=== PATIENT | female | born 1995 | race Caucasian/White ===

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

== ENCOUNTER 2017-08-27 11:22 | Emergency (ER) | payer OTHER ==
[~2017-08-27] VITALS: Ht 160 cm; Wt 74.8 kg
[2017-08-27] MEDS ORDERED: BETAMETHASONE D15 G1 TOP (12:00)
[2017-08-27] MEDS ORDERED: PREDNISONE10 MG PO (12:00)
[2017-08-27] MEDS ORDERED: SINGULAIR10 MG PO (12:00)
[2017-08-27] MEDS ORDERED: ADVAIR 250-501 EACH INH (12:00)
[2017-08-27] MEDS ORDERED: ALBUTEROL2.5 MG/3 M INH (12:38)
== END 2017-08-27 13:30 | disposition home or self-care (01) ==
LOC: ED 11:22
DX: J45.909 Unspecified asthma, uncomplicated (principal); L20.9 Atopic dermatitis, unspecified
CPT/HCPCS: 71045; 94640; 99283; J7512

== ENCOUNTER 2017-10-01 17:01 | Emergency (ER) | payer OTHER ==
[~2017-10-01] VITALS: Ht 157.5 cm; Wt 74.8 kg
[~2017-10-01 17:01] MED LIST changes: +ADVAIR 250-501 EACH INH; +BETAMETHASONE D15 G1 TOP; +PREDNISONE10 MG PO
[2017-10-01] MEDS ORDERED: PREDNISONE20 MG PO (18:53)
== END 2017-10-01 19:20 | disposition home or self-care (01) ==
LOC: ED 17:01
DX: J45.901 Unspecified asthma with (acute) exacerbation (principal); Z79.899 Other long term (current) drug therapy
CPT/HCPCS: 94640; 99283; J7512

== ENCOUNTER 2020-01-02 01:48 | Emergency (ER) | payer OTHER ==
[~2020-01-02] VITALS: Ht 157.5 cm; Wt 74.8 kg
--- OUTSIDE RECORDS SUMMARY | ~2020-01-02 | XMS | Encounter Summary ---
Demographics + + + | Address | [address] | | | [place] [address] | + + + | Home Phone | | + + + | Preferred Language | Unknown | + + + | Marital Status | | + + + | Cheondoism Affiliation | 1013 | + + + | Race | White | + + + | Ethnic Group | Not or | + + + Author + + + | Author | [facility] | | | and [place] | + + + | Organization | [facility] | | | and [place] | + + + | Address | Unknown | + + + | Phone | Unavailable | + + + Support + + + + + | Name | Relationship | Address | Phone | + + + + + | Alex Cain | ECON | [address] | | | | | [place] | | | | | [address] | | + + + + + Care Team Providers + +------+ + | Care Wellness Specialist Name | Role | Phone | + +------+ + | No, Physician | PCP | Unavailable | + +------+ + Encounter Details +--------+---------+ + + + | Date | Type | Department | Care Team | Description | +--------+---------+ + + + | 06/11/ | Office | [facility] | Wm Meza, | Encounter for | | 2020 | Visit | FERTILITY CENTER | [address] | fertility testing | | | | [address] | [address], | (Primary Dx) | | | | [address], [place] | [place] [address] | | | | | [address] | [phone] | | | | | [phone] | | | +--------+---------+ + + + Social History + +-------+ +--------+------+ | Tobacco Use | Types | Packs/Day | Years | Date | | | | | Used | | + +-------+ +--------+------+ | Never Smoker | | | | | + +-------+ +--------+------+ + +---+---+---+ | Smokeless Tobacco: | | | | | Never Used | | | | + +---+---+---+ + + +---------+ + | Alcohol Use | Drinks/Week | oz/Week | Comments | + + +---------+ + | No | | | | + + +---------+ + + + + | Sex Assigned at | Date Recorded | | | | + + + | Not on file | | + + + documented as of this encounter Progress Notes Wm Meza MD - 06/11/2019 11:00 AM PSTFormatting of this note might be different fr om the original. Subjective: Patient ID: Mitzy Cain is a 24 y.o. female. Patient's last menstrual period was 06/02/2019 (exact date). [id number] Mitzy is a No obstetric history on file. female who presents to office for a cycle day 10 f ollicle count ultrasound. She is a surrogate under the care and management of [facility] with Mal Martinez. Patient is currently using estrogen injections Patient denies questions or concerns today. No results found for this or any previous visit (from the past 672 hour(s)). Current Outpatient Medications: albuterol 90 mcg/puff inhaler, Inhale 2 puffs into the lungs every 6 hours as needed f or Wheezing., Disp: , Rfl: fluticasone-salmeterol (ADVAIR) 100-50 mcg/puff diskus inhaler, Inhale 1 puff into the lungs Twice Daily., Disp: , Rfl: hydrOXYzine hydrochloride (ATARAX) 25 mg tablet, , Disp: , Rfl: montelukast (SINGULAIR) 10 mg tablet, , Disp: , Rfl: OB History No obstetric history on file. Follicle Count US performed? yes Cycle day #3 Date: 06/04/2019 Follicle measurement: Anteverted uterus with a heterogenous endometrial thickness; initially measurin.51 mm a t the fundus, and 4.72 mm at mid-body. Peristalsis/movement consistent with menstrual flow noted. Endometrium is thick and bulbous at the fundus. Peristalsis at fundus within the bul bous area, most consistent with clot. During exam, apparent decrease of width in cavity near the fundus, measured again at end of exam, the endometrium was again heterogenous and measu ring 6.59 mm. During the entire examination no stalk of vascular flow was noted entering th e endometrium, no suggestion of a polyp, but cannot absolutely rule out. Ovaries appear quiescent. Anteverteduterus,endometrial thickness; measurin.70mm at the fundusand 4.77 mm midbody. A slightly hypoechoic, oblong area with no internal color flow and no apparent sto ck identified;does not appear to be a polyp or fibroid,probable blood and debris. Measur es:1.19 cm x 0.69 cm x 3.01cm Ovaries appear suppressed The cul-de-sac is free and containsno fluid. No past medical history on file. No past surgical history on file. Review of Systems Constitutional: Negative. Negative for activity change, appetite change, fever and unexpec halle weight change. HENT: Negative. Eyes: Negative. Respiratory: Negative. Cardiovascular: Negative. Gastrointestinal: Negative. Negative for abdominal distention, constipation and diarrhea. Endocrine: Negative. Negative for cold intolerance, heat intolerance, polydipsia and polyp hagia. Genitourinary: Negative for dyspareunia, pelvic pain, vaginal bleeding, vaginal discharge a nd vaginal pain. Musculoskeletal: Negative. Skin: Negative. Allergic/Immunologic: Negative for immunocompromised state. Neurological: Negative. Hematological: Negative. Psychiatric/Behavioral: Negative. Negative for agitation and dysphoric mood. The patient i s not hyperactive. Objective: Physical Exam Vitals signs reviewed. Constitutional: General: She is not in acute distress. Appearance: She is well-developed. She is not diaphoretic. HENT: Head: Normocephalic and atraumatic. Right Ear: External ear normal. Left Ear: External ear normal. Pulmonary: Effort: Pulmonary effort is normal. No respiratory distress. Abdominal: General: There is no distension. Genitourinary: Comments: Deferred, not indicated Skin: General: Skin is warm and dry. Neurological: Mental Status: She is alert and oriented to person, place, and time. Psychiatric: Behavior: Behavior normal. Thought Content: Thought content normal. Judgment: Judgment normal. Ultrasound Procedure Note Referring Physician: Gordy Dolan MD Performing Physician: Wm Meza MD Indications: Follicle assessment Date: 06/11/19 at 1132 hours Procedure Details The entire study was done at a setting of 6.5 MHz. Transvaginal probe used. The cul-de-sac is free and contains a small amount of clear fluid. Uterus Size: 9.45 cm x 4.55 cm x 5.73 cm. Volume: 129.002 cm Anteverted uterus with a heterogenous endometrial thickness; measurin.98 mm. Right ovary Size: Normal Follicles - Minimal antral follicles present, nothing > 5 mm. Left ovary Size: Normal Follicles - Minimal antral follicles present, nothing > 5 mm. Findings: Anteverted uterus with a heterogenous endometrial thickness; measurin.98 mm. Both ovaries seen, no cysts or masses appreciated. Appearance consistent with suppression. Assessment and Plan: Encounter for fertility testing: Follicle assessment completed. Findings noted above. PLAN: 1. Full report faxed to [facility], attention Sara Bradshaw RN at [phone] Note scribed by TOMI Lopez for Wm Meza MD. I, Wm Meza MD, personally performed the services described in this documentatio n, as scribed by Debbie Bergman CMA in my presence, and it is both accurate and complete. documented in this e ncounter Plan of Treatment Not on filedocumented as of this encounter Visit Diagnoses + + | Diagnosis | + + | Encounter for fertility testing - Primary Fertility testing | + + documented in this encounter"
--- OUTSIDE RECORDS SUMMARY | ~2020-01-02 | XMS | Encounter Summary ---
Demographics + + + | Address | [address] | | | [place] [address] | + + + | Home Phone | | + + + | Preferred Language | Unknown | + + + | Marital Status | | + + + | Latter Day Affiliation | 1013 | + + + | Race | White | + + + | Ethnic Group | Not or | + + + Author + + + | Author | [facility] | | | and [place] | + + + | Organization | [facility] | | | and [place] | + + + | Address | Unknown | + + + | Phone | Unavailable | + + + Support + + + + + | Name | Relationship | Address | Phone | + + + + + | Alex Cain | ECON | [address] | | | | | [place], [place] | | | | | [address] | | + + + + + Care Team Providers + +------+ + | Care Sandwich Maker Name | Role | Phone | + +------+ + | No, Physician | PCP | Unavailable | + +------+ + Reason for Visit + +--------+ + | Reason | Onset | Comments | | | Date | | + +--------+ + | Follow-up | 07/05/ | | | | 2018 | | + +--------+ + Encounter Details +--------+ + + + + | Date | Type | Department | Care Team | Description | +--------+ + + + + | 07/05/ | Telephone | [facility] | No, Physician p | Follow-up | | 2017 | | [facility] | | | | | | CENTER [address] | | | | | | [place] | | | | | | [address] | | | | | | [phone] | | | +--------+ + + + + Social History + +-------+ [...] + + documented as of this encounter Miscellaneous Notes Telephone Encounter - Cam Blount CNA - 07/05/2017 11:36 AM PSTReason For Call: FOLLOW-UP documented in this enco unter Plan of Treatment Not on filedocumented as of this encounter Visit Diagnoses Not on filedocumented in this encounter"
--- OUTSIDE RECORDS SUMMARY | ~2020-01-02 | XMS | Encounter Summary ---
Demographics + + + | Address | [address] | | | [place] [address] | + + + | Home Phone | | + + + | Preferred Language | Unknown | + + + | Marital Status | | + + + | Jehovah'S Witness Affiliation | 1013 | + + + | Race | White | + + + | Ethnic Group | Not or | + + + Author + + + | Author | [facility] | | | and [place] | + + + | Organization | [facility] | | | and [place] | [...] [place], [place] | | | | | [address] | | + + + + + Care Team Providers + +------+ + | Care Car Hopper Name | Role | Phone | + +------+ + | No, Physician | PCP | Unavailable | + +------+ + Reason for Visit +--------+ + | Reason | Comments | +--------+ + | Cough | | +--------+ + Encounter Details +--------+ + + + + | Date | Type | Department | Care Team | Description | +--------+ + + + + | 04/14/ | Emergency | [facility] | Jair Duff | Viral upper | | 2017 | | HOSPITAL [facility] | [address] | respiratory tract | | | | CENTER [address] | [address] | infection (Primary | | | | [address] [place], [place] | [place] [address] | Dx) | | | | [address] | [phone] | | | | | [phone] | | | +--------+ + + + [...] + + documented as of this encounter Last Filed Vital Signs + + + + + | Vital Sign | Reading | Time Taken | Comments | + + + + + | Blood Pressure | 133/74 | 04/14/2017 3:20 PM | | | | | PST | | + + + + + | Pulse | 90 | 04/14/2017 3:20 PM | | | | | PST | | + + + + + | Temperature | 36.8 C (98.2 F) | 04/14/2017 3:20 PM | | | | | PST | | + + + + + | Respiratory Rate | 16 | 04/14/2017 3:20 PM | | | | | PST | | + + + + + | Oxygen Saturation | 100% | 04/14/2017 3:20 PM | | | | | PST | | + + + + + | Inhaled Oxygen | - | - | | | Concentration | | | | + + + + + | Weight | 70.3 kg (155 lb) | 04/14/2017 3:20 PM | | | | | PST | | + + + + + | Height | 157.5 cm (5' 2") | 04/14/2017 3:20 PM | | | | | PST | | + + + + + | Body Mass Index | 28.35 | 04/14/2017 3:20 PM | | | | | PST | | + + + + + documented in this encounter Discharge Instructions Jair Kerr DO - 04/14/2017Follow-up with your primary doctor as needed. AttachmentsThe following attachments cannot be sent through Care Everywhere.URI, Viral, No Abx (Adult) ([place])documented in this encounter Medications at Time of Discharge + + + +---------+--------+ + | Medication | Sig | Dispensed | Refills | Start | End Date | | | | | | Date | | + + + +---------+--------+ + | albuterol 90 | Inhale 2 puffs into | | 0 | | | | mcg/puff inhaler | the lungs every 6 | | | | | | | hours as needed for | | | | | | | Wheezing. | | | | | + + + +---------+--------+ + | | Inhale 1 puff into | | 0 | | | | fluticasone-salmeter | the lungs Twice | | | | | | ol (ADVAIR) 100-50 | Daily. | | | | | | mcg/puff diskus | | | | | | | inhaler | | | | | | + + + +---------+--------+ + | montelukast | Take 10 mg by mouth | | 0 | | | | (SINGULAIR) 10 mg | nightly. | | | | 8 | | tablet | | | | | | + + + +---------+--------+ + documented as of this encounter ED Notes Jair Duff, DO - 04/14/2017 3:29 PM PSTFormatting of this note might be diff erent from the original. [facility] Emergency Department Provider Note Name: Melecio Cain Date: 04/14/2017 : 1995 Room Number: ED01 PCP: No Physician on file ED COURSE Patient was seen and evaluated in room 1. She appeared to be suffering from upper respirat ory tract infection. I felt it was likely viral. Patient was discharged in stable conditio n. Clinical Impression and Plan Final diagnoses: Viral upper respiratory tract infection ED Prescriptions None Extended ED Note CC: Chief Complaint Patient presents with Cough Method of Arrival: walk-in History obtained from: Patient HPI: Melecio Cain is a 21 y.o. female who presents with chest pain associated with cough. Onset w as yesterday and pt states that her 23 month old son has been sick with similar symptoms for about a week; her 3 m.o. son began having similar symptoms last night as well. She reports a history of asthma for which she takes albuterol inhaler for, as needed. She denies new karon h, fever, or ear pain. Review of Systems Review of Systems Constitutional: Negative for fever. HENT: Negative for ear pain. Respiratory: Positive for cough (Chest pain associated with cough). Skin: Positive for rash (Rash has been present since her yonger son's , 3 months ago. ). Physical Exam Pulse: 90- Resp: 16- BP: 133/74 - SpO2: 100 % - Temp: 36.8 C (98.2 F) Physical Exam Constitutional: She is oriented to person, place, and time. She appears well-developed and well-nourished. No distress. HENT: Head: Normocephalic and atraumatic. Right Ear: Tympanic membrane, external ear and ear canal normal. Left Ear: Tympanic membrane, external ear and ear canal normal. Mouth/Throat: Mucous membranes are normal. Congestion. Moist mucus membrane Eyes: Pupils are equal, round, and reactive to light. Neck: Normal range of motion. Neck supple. Cardiovascular: Normal rate, regular rhythm and normal heart sounds. Pulmonary/Chest: Effort normal and breath sounds normal. Abdominal: Soft. Musculoskeletal: Normal range of motion. Neurological: She is alert and oriented to person, place, and time. Skin: Skin is warm and dry. Psychiatric: She has a normal mood and affect. Past Medical, Surgical, Social, and Family History History reviewed. No pertinent past medical history. History reviewed. No pertinent surgical history. Social History Substance Use Topics Smoking status: Never Smoker Smokeless tobacco: Never Used Alcohol use No Discharge Medication List as of 04/14/2017 15:51 CONTINUE these medications which have NOT CHANGED Details albuterol 90 mcg/puff inhaler Inhale 2 puffs into the lungs every 6 hours as needed for Whe ezing.Historical Med fluticasone-salmeterol (ADVAIR) 100-50 mcg/puff diskus inhaler Inhale 1 puff into the lungs Twice Daily.Historical Med montelukast (SINGULAIR) 10 mg tablet Take 10 mg by mouth nightly.Historical Med This document serves as a record of the serviced and decision personally performed by Sheryl Duff,*. It was created on their behalf by Talat Marroquin, a trained medical interpreter. The creation of this document is based on the provider's statements to the medical s cribe. Jair Duff DO 04/16/17 0933 Carmel Lombardi RN - 04/14/2017 3:17 PM PSTStarted coughing, chest pain with cough, history of ast hma. Symptoms started yesterday. documented in this encounter Plan of Treatment + +------+--------+ + + | Name | Type | Priori | Associated Diagnoses | Date/Time | | | | ty | | | + +------+--------+ + + | ED INFORMATION | HERB | Routin | | 04/14/2017 3:51 PM | | EXCHANGE | | e | | PST | + +------+--------+ + + documented as of this encounter Procedures + +--------+ + + + | Procedure Name | Priori | Date/Time | Associated Diagnosis | Comments | | | ty | | | | + +--------+ + + + | ED INFORMATION | Routin | 04/14/2017 | | | | EXCHANGE | e | 3:51 PM | | | | | | PST | | | + +--------+ + + + +---+--------+ | | | | | Proced | | | ure | | | Note - | | | Devika, | | | Lab In | | | | | | Hlseve | | | n - | | | | | | 2016 | | | 3:52 | | | PM PST | | | | | | Format | | | ting | | | of | | | this | | | note | | | might | | | be | | | differ | | | ent | | | from | | | the | | | origin | | | al.DEVIKA | | | E?NOTI | | | FICATI | | | ON? | | | | | | 7 | | | 14:44? | | | CAIN, | | | | | | MELECIO? | | | MRN: | | | [id number] | | | [id number] | | | D Care | | | | | | Guidel | | | zhang | | | from | | | Good | | | [facility] | | | rd | | | Health | | | Care | | | System | | | Last | | | Update | | | d: | | | | | | 7 | | | 11:37 | | | AM | | | Care | | | Coordi | | | nation | | | :This | | | patien | | | t has | | | been | | | identi | | | fied | | | as | | | having | | | at | | | least? | | | 5 | | | Emerge | | | ncy | | | Depart | | | ments | | | visits | | | in | | | the 12 | | | | | | months | | | | | | immedi | | | ately | | | preced | | | ing | | | the | | | date | | | these | | | guidel | | | zhang | | | were | | | entere | | | d.? | | | Patien | | | t | | | requir | | | es | | | educat | | | ion on | | | | | | approp | | | riate | | | ED | | | usage. | | | | | | Emphas | | | ize | | | the | | | import | | | ance | | | of | | | using | | | outpat | | | ient | | | medica | | | l | | | servic | | | es for | | | the | | | treatm | | | ent of | | | | | | chroni | | | c | | | condit | | | ions.P | | | lease | | | contac | | | t | | | Commun | | | ity | | | Health | | | | | | Worker | | | ,?Yosvany | | | | | | Branno | | | n?at | | | [phone] | | [phone] | | | 8 if | | | patien | | | t is | | | seen | | | in | | | ED.The | | | se are | | | | | | guidel | | | zhang | | | and | | | the | | | provid | | | er | | | should | | | | | | exerci | | | se | | | clinic | | | al | | | judgme | | | nt | | | when | | | provid | | | ing | | | care.C | | | riteri | | | a met | | | Has | | | Care | | | Guidel | | | zhang | | | 5 | | | Visits | | | In | | | 365 | | | DaysCa | | | re | | | Provid | | | ersPro | | | vider | | | PRC | | | Type | | | Phone | | | Fax | | | Servic | | | e | | | Dates | | | TURNER | | | AHMADI | | | , [place] | | | Primar | | | y Care | | | ([phone]) | | | | | | [phone] | | | [phone] | | | [phone]) | | | [phone] | | | 27 Apr | | | 27, | | | 2017 - | | | | | | Curren | | | t | | | Yosvany | | | Branno | | | n, CHW | | | Case | | | or | | | Care | | | Manage | | | r | | | ([phone]) | | | [phone] | | | 08 | | | ([phone]) | | | [phone] | | | 10 Jethro | | | 6, | | | 2017 - | | | | | | Curren | | | t | | | Recent | | | | | | Emerge | | | ncy | | | Depart | | | ment | | | Visit | | | [place] | | | yAdmit | | | Date | | | Facili | | | ty | | | City | | | State | | | Type | | | Major | | | Type | | | Diagno | | | ses or | | | Chief | | | | | | Compla | | | int | | | Dec | | | 18, | | | 2017 | | | [facility] | | | [facility] | | | [place] | [place] | [place] | | | Emerge | | | ncy | | | Emerge | | | ncy | | | COUGH | | | | | | Acute | | | upper | | | respir | | | atory | | | infect | | | ion, | | | unspec | | | ified | | | | | | Other | | | viral | | | agents | | | as | | | the | | | cause | | | of | | | diseas | | | es | | | classi | | | fied | | | elsewh | | | ere | | | Recent | | | | | | Inpati | | | ent | | | Visit | | | [facility] | | | yNo | | | record | | | ed | | | inpati | | | ent | | | visits | | | . E.D. | | | Visit | | | Count | | | (12 | | | mo.)Fa | | | cility | | | | | | Visits | | | Good | | | [facility] | | | rd | | | Health | | | Care | | | System | | | 2 | | | [facility] | | | [facility] | [facility] | | | al 1 | | [facility] | | | al 2 | | | Total | | | 5 | | | Note: | | | Visits | | | | | | indica | | | te | | | total | | | known | | | visits | | | . | | | PDMP | | | Report | | | Unable | | | to | | | query | | | PDMP.T | | | he | | | above | | | inform | | | ation | | | is | | | provid | | | ed for | | | the | | | sole | | | purpos | | | e of | | | patien | | | t | | | treatm | | | ent. | | | Use of | | | this | | | inform | | | ation | | | beyond | | | the | | | terms | | | of | | | Data | | | Sharin | | | g | | | Memora | | | ndum | | | of | | | Unders | | | tandin | | | g and | | | Licens | | | e | | | Agreem | | | ent is | | | | | | prohib | | | ited. | | | In | | | certai | | | n | | | cases | | | not | | | all | | | visits | | | may | | | be | | | repres | | | ented. | | | | | | Consul | | | t the | | | aforem | | | ention | | | ed | | | facili | | | ties | | | for | | | additi | | | onal | | | inform | | | ation. | | | ? | | | 2017 | | | [employer] | | | tive | | | [employer] | | | l | | | [employer] | | | logies | | | , [employer] | | | - | | | [place] | | | [place] | | | [place], | | | [place] - | | | [email or web address] | | | ollect | | | ivemed | | | icalte | | | ch.com | | | | +---+--------+ documented in this encounter Visit Diagnoses + + | Diagnosis | + + | Viral upper respiratory tract infection - Primary Acute upper respiratory infections | | of unspecified site | + + documented in this encounter
--- OUTSIDE RECORDS SUMMARY | ~2020-01-02 | XMS | Encounter Summary ---
Demographics + + + | Address | [address] | | | [place] [address] | + + + | Home Phone | | + + + | Preferred Language | Unknown | + + + | Marital Status | | + + + | Catholic Affiliation | 1013 | + + + | Race | White | + + + | Ethnic Group | Not or | + + + Author + + + | Author | [facility] | | | and [place] | + + + | Organization | [facility] | | | and [place] | [...] [place], [place] | | | | | [address] | | + + + + + Care Team Providers + +------+ + | Care Gear Repairer Name | Role | Phone | + +------+ + | No, Physician | PCP | Unavailable | + +------+ + Reason for Visit +--------+ + | Reason | Comments | +--------+ + | Other | Outside monitoring | +--------+ + Encounter Details +--------+---------+ + + + | Date | Type | Department | Care Team | Description | +--------+---------+ + + + | 06/01/ | Office | [facility] | Susana Jensen, | Encounter for | | 2020 | Visit | FERTILITY [facility]ENTER | MD [address] | fertility testing | | | | [address] | [address] [facility] (Primary Dx) | | | | [address] [place], [place] | [place] [address] | | | | | [address] | [phone] | | | | | [phone] | | | +--------+---------+ + + + [...] encounter Progress Notes Wm Meza MD - 06/01/2019 8:30 AM PSTFormatting of this note might be different fr om the original. Subjective: Patient ID: Mitzy Cain is a 24 y.o. female. LMP unkown [id number] Mitzy is a female who presents to office for a cycle day follicle count ultrasound. 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 Stimulation medications used this cycle: Patient completed a month of OCP, finishing Thursd ay 05/27/2019. She has not started her menses to date. Patient denies questions or concerns today. No results found for this or any previous visit (from the past 672 hour(s)). Current Outpatient Medications: albuterol 90 mcg/puff inhaler, Inhale 2 puffs into the lungs every 6 hours as needed f or Wheezing., Disp: , Rfl: fluticasone-salmeterol (ADVAIR) 100-50 mcg/puff diskus inhaler, Inhale 1 puff into the lungs Twice Daily., Disp: , Rfl: OB History No obstetric history on file. Follicle Count US performed? no No past medical history on file. No [...] Wm Meza MD Indications: Follicle assessment Date: 06/01/19 at 0835 hours Procedure Details The entire study was done at a setting of 6.5 MHz. Transvaginal probe used. The cul-de-sac is free and contains no fluid. Uterus Size: 5.44 cm x 5.65 cm x 4.50 cm. Volume: 72.353 cm Anteverted uterus, endometrial thickness; measurin.70 mm at the fundus and 4.77 mm mid body. A slightly hypoechoic, oblong area with no internal color flow and no apparent stock i dentified; does not appear to be a polyp or fibroid, probable blood and debris. Measures: 1. 19 cm x 0.69 cm x 3.01 cm Right ovary Size: 4.83 cm x 3.66 cm x 1.50 cm. Volume: 13.884 cm Follicles - 12, antral follicles present Left ovary Size: 3.00 cm x 3.22 cm x 1.44 cm. Volume: 7.283 cm Follicles - 9 antral follicles present Findings: Anteverted uterus, endometrial thickness; measurin.70 mm at the fundus and 4.77 mm mid body. A slightly hypoechoic, oblong area with no internal color flow and no apparent stock i dentified; does not appear to be a polyp or fibroid, probable blood and debris. Measures: 1. 19 cm x 0.69 cm x 3.01 cm Ovaries appear suppressed The cul-de-sac is free and contains no fluid. Assessment and Plan: Encounter for fertility testing: Follicle assessment completed. Findings noted above. PLAN: 1. Full report faxed to [facility], attention Sara Bradshaw RN at [phone] Note scribed by TOMI Lopez for Wm Meza MD. I, Wm Meza MD, personally performed the services described in this documentatio n, as scribed by Debbie Bergman CMA in my presence, and it is both accurate and complete. . documented in this encounter Plan of Treatment Not on filedocumented as of this encounter Procedures + +--------+ + + + | Procedure Name | Priori | Date/Time | Associated Diagnosis | Comments | | | ty | | | | + +--------+ + + + | IMAGING REPORT - | | 06/01/2019 | | Results for this | | EXTERNAL SCAN | | 12:00 AM | | procedure are in the | | | | PST | | results section. | + +--------+ + + + documented in this encounter Results IMAGING REPORT - EXTERNAL SCAN (06/01/2019 12:00 AM PST) + + + | Narrative | Performed At | + + + | Ordered by an | | | unspecified provider. | | + + + documented in this encounter Visit Diagnoses + + | Diagnosis | + + | Encounter for fertility testing - Primary Fertility testing | + + documented in this encounter"
--- OUTSIDE RECORDS SUMMARY | ~2020-01-02 | XMS | Encounter Summary ---
Demographics + + + | Address | [address] | | | [place] [address] | + + + | Home Phone | | + + + | Preferred Language | Unknown | + + + | Marital Status | | + + + | Worship Affiliation | 1013 | + + + | Race | White | + + + | Ethnic Group | Not or | + + + Author + + + | Author | [facility] | | | and [place] | + + + | Organization | [facility] | | | and [place] | [...] [place], [place] | | | | | [address] | | + + + + + Care Team Providers + +------+ + | Care Green Chain Off Bearer Name | Role | Phone | + +------+ + | No, Physician | PCP | Unavailable | + +------+ + Reason for Visit + +--------+ + | Reason | Onset | Comments | | | Date | | + +--------+ + | ER Follow-up | 08/20/ | | | | 2018 | | + +--------+ + Encounter Details +--------+ + + + + | Date | Type | Department | Care Team | Description | +--------+ + + + + | 08/20/ | Telephone | [facility] | No, Physician p | ER Follow-up | | 2017 | | [facility] | | | | | | CENTER [address] | | | | | | [place] | | | | | | [address] | | | | | | [phone] | | | +--------+ + + + [...] this encounter Miscellaneous Notes Telephone Encounter - Dalia Bustamante CNA - 08/20/2017 2:08 PM PDTReason For Call: REMEDIOS BUI-UP documented in this encounter Plan of Treatment Not on filedocumented as of this encounter Visit Diagnoses Not on filedocumented in this encounter"
--- OUTSIDE RECORDS SUMMARY | ~2020-01-02 | XMS | Encounter Summary ---
Demographics + + + | Address | [address] | | | [place] [address] | + + + | Home Phone | | + + + | Preferred Language | Unknown | + + + | Marital Status | | + + + | Yarsani Affiliation | 1013 | + + + | Race | White | + + + | Ethnic Group | Not or | + + + Author + + + | Author | [facility] | | | and [place] | + + + | Organization | [facility] | | | and [place] [...] [place] | | | | | [address] | | + + + + + Care Team Providers + +------+ + | Care Retail Sales Manager Name | Role | Phone | + +------+ + | No, Physician | PCP | Unavailable | + +------+ + Reason for Referral Evaluate & Treat (Routine) +--------+ + + + + + | Status | Reason | Specialty | Diagnoses / | Referred By | Referred To | | | | | Procedures | Contact | Contact | +--------+ + + + + + | Closed | Specialty | Dermatology | Diagnoses | Kwenda, | [facility] | | | Services | | Atopic | Esinath S, | Dermatology | | | Required | | dermatitis, | [facility] [address] | [address] | | | | | unspecified | [address] | [address] | | | | | | [place], | [place] | | | | | | [place] [address] | [place], [place] | | | | | | Phone: | [address] | | | | | | [phone] | Phone: | | | | | | Fax: | [phone] | | | | | | [phone] | Fax: | | | | | | | [phone] | +--------+ + + + + + Reason for Visit +--------+ + | Reason | Comments | +--------+ + | Rash | | +--------+ + Encounter Details +--------+ + + + + | Date | Type | Department | Care Team | Description | +--------+ + + + + | 08/17/ | Emergency | [facility] | RudolphAdriana carmona, | Atopic dermatitis, | | 2018 | | HOSP[facility] | [facility] [address] | unspecified type | | | | CENTER [address] | [address] [place], [place] | (Primary Dx) | | | | [place] | [address] | | | | | [address] | | | | | | [phone] | | | +--------+ + + + [...] + + + | Blood Pressure | 121/73 | 08/17/2017 3:14 PM | | | | | PDT | | + + + + + | Pulse | 81 | 08/17/2017 3:38 PM | | | | | PDT | | + + + + + | Temperature | 36.4 C (97.5 F) | 08/17/2017 3:45 PM | | | | | PDT | | + + + + + | Respiratory Rate | 16 | 08/17/2017 3:38 PM | | | | | PDT | | + + + + + | Oxygen Saturation | 100% | 08/17/2017 3:38 PM | | | | | PDT | | + + + + + | Inhaled Oxygen | - | - | | | Concentration | | | | + + + + + | Weight | 74.8 kg (165 lb) | 08/17/2017 2:47 PM | | | | | PDT | | + + + + + | Height | 157.5 cm (5' 2") | 08/17/2017 2:47 PM | | | | | PDT | | + + + + + | Body Mass Index | 30.18 | 08/17/2017 2:47 PM | | | | | PDT | | + + + + + documented in this encounter Discharge Instructions AttachmentsThe following attachments cannot be sent through Care Everywhere.Dermatitis, Wha t is Atopic ([place] Citizen)documented in this encounter Medications at Time of Discharge + + + +---------+ + + | Medication | Sig | Dispensed | Refills | Start | End Date | | | | | | Date | | + + + +---------+ + + | albuterol 90 | Inhale 2 puffs into | | 0 | | | | mcg/puff inhaler | the lungs every 6 | | | | | | | hours as needed for | | | | | | | Wheezing. | | | | | + + + +---------+ + + | | Inhale 1 puff into | | 0 | | | | fluticasone-salmeter | the lungs Twice | | | | | | ol (ADVAIR) 100-50 | Daily. | | | | | | mcg/puff diskus | | | | | | | inhaler | | | | | | + + + +---------+ + + | predniSONE | Take 1 tablet by | 7 | 0 | 08/18/19 | | | (DELTASONE) 20 mg | mouth Daily for 7 | tablet | | 18 | 8 | | tablet | days. | | | | | + + + +---------+ + + documented as of this encounter ED Notes Geno Clarke RN - 08/17/2017 3:05 PM ERNESTINA Steele to room to assess patient. Raymond toscano signed by Geno Clarke RN at 08/17/2017 3:05 PM Adriana Payne FNP - 07/28 2:50 PM PDT [facility] Emergency Department Provider Note Name: Melecio Cain Date: 08/17/2017 : 1995 Room Number: ED02 PCP: No Physician on file Medical Decision Making Patient was triaged to Room 2. Differential diagnosis include atopi c dermatitis. Patient refused topical steroids stating it does not work. A referral was made to the dermatology clinic and images of the rash were downloaded into [employer]. She was given a low dose oral steroid for the rash. Clinical Impression and Plan Final diagnoses: Atopic dermatitis, unspecified type ED Prescriptions Sig predniSONE (DELTASONE) 20 mg tablet Take 1 tablet by mouth Daily for 7 days. Extended ED Note CC: Chief Complaint Patient presents with Rash Method of Arrival: walk-in History obtained from: Patient HPI: Melecio Cain is a 22 y.o. female who presents with a rash on her left arm. Patient states th e rash started three days ago. Patient states the rash started when she was with he r son but it went away but came back again. The rash is intermittent. Patient states she has heart palpitations that come and go. Denies chest pain, shortness of breath or fever. She s tates she has tried all the over the counter creams but they do not seem to help. Patient ates she has been seen by different providers for the rash but the rash still comes back and she is worried that it might get worse. Additional records obtained and reviewed by me: Reviewed old records, labs, imaging. Histo ry significant for Diagnostics and Procedures The following tests were ordered and independently interpreted by me: EKG: Review of Systems Review of Systems Constitutional: Negative. HENT: Negative. Eyes: Negative. Respiratory: Positive for shortness of breath. Shortness of Breath due to Asthma. Cardiovascular: Positive for palpitations. Gastrointestinal: Negative. Endocrine: Negative. Genitourinary: Negative. Musculoskeletal: Negative. Skin: Positive for rash. Allergic/Immunologic: Negative. Neurological: Positive for headaches. Hematological: Negative. Psychiatric/Behavioral: Negative. Physical Exam @[email or web address]@ Physical Exam Constitutional: She is oriented to person, place, and time. She appears well-developed and well-nourished. HENT: Head: Normocephalic and atraumatic. Eyes: Pupils are equal, round, and reactive to light. Pulmonary/Chest: Effort normal and breath sounds normal. Musculoskeletal: Normal range of motion. Neurological: She is alert and oriented to person, place, and time. She has normal reflexes . Skin: Rash noted. There is erythema. Maculopapular rash noted. Psychiatric: She has a normal mood and affect. Her speech is normal and behavior is normal. Judgment and thought content normal. Cognition and memory are normal. Nursing note and vitals reviewed. Past Medical, Surgical, Social, and Family History No past medical history on file. No past surgical history on file. Social History Substance Use Topics Smoking status: Never Smoker Smokeless tobacco: Never Used Alcohol use No Discharge Medication List as of 08/17/2017 15:40 CONTINUE these medications which have NOT CHANGED Details albuterol 90 mcg/puff inhaler Inhale 2 puffs into the lungs every 6 hours as needed for Whe ezing.Historical Med fluticasone-salmeterol (ADVAIR) 100-50 mcg/puff diskus inhaler Inhale 1 puff into the lungs Twice Daily.Historical Med Adriana Ash, [facility] 08/17/17 1911 Adriana Ash, [facility] 08/18/17 1443 Adriana Ash, NATHAN 08/22/17 1026 Carmel Solano RN - 08/17/2017 2:46 PM PDTPt c/o's rash on left arm x 2 days. documented in this encounter Plan of Treatment + +------+--------+ + + | Name | Type | Priori | Associated Diagnoses | Date/Time | | | | ty | | | + +------+--------+ + + | ED INFORMATION | HERB | Routin | | 08/17/2017 2:45 PM | | EXCHANGE | | e | | PDT | + +------+--------+ + + + + +--------+ + + | Name | Type | Priori | Associated Diagnoses | Order Schedule | | | | ty | | | + + +--------+ + + | AMB Referral to | Outpatient | Routin | | Ordered: 08/17/2017 | | [facility] | Referral | e | | | + + +--------+ + + documented as of this encounter Procedures + +--------+ + + + | Procedure Name | Priori | Date/Time | Associated Diagnosis | Comments | | | ty | | | | + +--------+ + + + | ECG 12 LEAD | STAT | 08/17/2017 | | Results for this | | | | 3:08 PM | | procedure are in the | | | | PDT | | results section. | + +--------+ + + + | ED INFORMATION | Routin | 08/17/2017 | | | | EXCHANGE | e | 2:45 PM | | | | | | PDT | | | + +--------+ + + + +---+--------+ | | | | | Proced | | | ure | | | Note - | | | Devika, | | | Lab In | | | | | | Hlseve | | | n - | | | | | | 2017 | | | 2:46 | | | PM PDT | | | | | | Format [...] | | | FICATI | | | ON?[birth year] | | | | | | 8 | | | 14:44? | | | CAIN, | | | | | | MELECIO? | | | MRN: | | | [id number] | | | [id number] | | | ecurit | | | y | | | Events | | | No | | | recent | | | | | | Securi | | | ty | | | Events | | | | | | curren | | | tly on | | | | | | fileED | | | Care | | | Guidel | | | inesTh | | | ere | | | are | | | curren | | | tly no | | | ED | | | Care | | | Guidel | | | zhang | | | in | | | HERB | | | for | | | this | | | patien | | | t. | | | Please | | | check | | | your | | | facili | | | ty's | | | medica | | | l | | | record | | | s | | | system | | | .Crite | | | yomi | | | met 5 | | | | | | Visits [...] | | | int | | | Apr | | | 22, | | | 2018 | | | [place] | | | [place] | | | [place] | | | [place] | | | [place] | | | Emerge | | | ncy | | | Emerge | | | ncy | | | rash | | | Mar | | | 8, | | | 2018 | | | [place] | | | [place] | | | [place] | | | [place] | | | [place] | | | Emerge | | | ncy | | | Emerge | | | ncy | | | Astma | | | | | | Diffic | | | ulty | | | Breath | | | ing | | | Mild | | | interm | | | ittent | | | | | | asthma | | | , | | | uncomp | | | licate | | | d Richard | | | 14, | | | 2018 | | | [place] | | | [place] | | | [place] | | | [place] | | | [place] | | | Emerge | | | ncy | | | Emerge | | | ncy | | | Toe | | | Injury | | | | | | Pain | | | in | | | left | | | toe(s) | | | Dec | | | [...] | | Hospit | | | al 4 | [facility] | | | al 2 | | | Total | | | 8 | | | Note: | | | Visits | | | | | | indica | | | te | | | total | | | known | | | visits | | | . | | | PDMP | | | Report | | | PDMP | | | report | | | does | | | not | | | meet | | | criter | | | ia.The | | | above | | | | | | inform | | | [...] | | | ? | | | 2018 | | | [place] | | | [...] | | +---+--------+ documented in this encounter Results ECG 12 lead (08/17/2017 3:08 PM PDT) + + | Specimen | + + | | + + + + + | Narrative | Performed At | + + + | Heart Rate: 86 | [place] [facility] | | bpmQRS Interval: 82 msQT Interval: 380 msQTC Interval: 455 msP [place]: | [facility] | | 50 degQRS [place]: 48 degT Wave [place]: 27 degP-R Interval: 156 msec- | | | NORMAL ECG -SINUS RHYTHM | | |P [place]: 50 deg | | |QRS [place]: 48 deg | | |T Wave [place]: 27 deg | | |P-R Interval: 156 msec | | |- NORMAL ECG - | | |SINUS RHYTHM | | + + + + +---------+ + + | Performing | Address | City/State/Zipcode | Phone Number | | Organization | | | | + +---------+ + + | [facility] | | | | + +---------+ + + documented in this encounter Visit Diagnoses + + | Diagnosis | + + | Atopic dermatitis, unspecified type - Primary | + + documented in this encounter
--- OUTSIDE RECORDS SUMMARY | ~2020-01-02 | XMS | Encounter Summary ---
Demographics + + + | Address | [address] | | | [place] [address] | + + + | Home Phone | | + + + | Preferred Language | Unknown | + + + | Marital Status | | + + + | Quaker Affiliation | 1013 | + + + | Race | White | + + + | Ethnic Group | Not or | + + + Author + + + | Author | [facility] | | | and [place] | + + + | Organization | [facility] | | | and [place] [...] [place], [place] | | | | | [address] | | + + + + + Care Team Providers + +------+ + | Care Brine Tank Tender Name | Role | Phone | + +------+ + | No, Physician | PCP | Unavailable | + +------+ + Reason for Visit + + + | Reason | Comments | + + + | Difficulty Breathing | | + + + Encounter Details +--------+ + + + + | Date | Type | Department | Care Team | Description | +--------+ + + + + | 07/03/ | Emergency | [facility] | Naveed Corral | Mild intermittent | | 2018 | | [facility]OSP[facility] | MD [address] | asthma without | | | | CENTER [address] | [address] | complication | | | | [address], [place] | [place] [address] | (Primary Dx) | | | | [address] | [phone] | | | | | [phone] | | | +--------+ + + + [...] + + + | Blood Pressure | 128/82 | 07/03/2017 1:08 AM | | | | | PST | | + + + + + | Pulse | 118 | 07/03/2017 1:08 AM | | | | | PST | | + + + + + | Temperature | 36.3 C (97.3 F) | 07/03/2017 1:08 AM | | | | | PST | | + + + + + | Respiratory Rate | 18 | 07/03/2017 1:08 AM | | | | | PST | | + + + + + | Oxygen Saturation | 97% | 07/03/2017 1:08 AM | | | | | PST | | + + + + + | Inhaled Oxygen | - | - | | | Concentration | | | | + + + + + | Weight | 74.8 kg (165 lb) | 07/03/2017 1:08 AM | | | | | PST | | + + + + + | Height | 157.5 cm (5' 2") | 07/03/2017 1:08 AM | | | | | PST | | + + + + + | Body Mass Index | 30.18 | 07/03/2017 1:08 AM | | | | | PST | | + + + + + documented in this encounter Discharge Instructions AttachmentsThe following attachments cannot be sent through Care Everywhere.[facility] Instructions for (Sinhala)documented in this encounter Medications at Time of [...] + + + +---------+ + + | montelukast | Take 10 mg by mouth | | 0 | | | | (SINGULAIR) 10 mg | nightly. | | | | 8 | | tablet | | | | | | + + + +---------+ + + | predniSONE | Take 2 tablets by | 6 | 0 | 07/04/19 | | | (DELTASONE) 20 mg | mouth Daily for 3 | tablet | | 18 | 8 | | tablet | days. | | | | | + + + +---------+ + + documented as of this encounter ED Notes Naveed Corral MD - 07/03/2017 1:17 AM PSTFormatting of this note might be differe nt from the original. Chief Complaint Patient presents with Difficulty Breathing HPI: Melecio Cain is a 22 y.o. female who presents to the emergency department For coughing. Pat ient is a history of asthma she is needing to use her nebulizer last few days. She woke up this evening coughing and decided to come to emergency department. Her cough is improved. She has not been ill recently. She recently moved to the area does not have a local primary care provider. She uses a nebulizer and trying to explain to me there is some part that wa s missing or broken but she could not tell me the name or what part of it is. She has not s een a primary care provider. She has not had a fever. She used an albuterol nebulizer shor tly before arriving to the emergency department. PMH: History reviewed. No pertinent past medical history. There is no problem list on file for this patient. PSH: History reviewed. No pertinent surgical history. SOC: The patient is followed by No Physician on file. reports that she has never smoked. She has never used smokeless tobacco. She reports that she does not drink alcohol or use drugs. Allergies: No Known Allergies Home Medications: Prior to Admission medications Medication Sig Start Date End Date Taking? Authorizing Provider albuterol 90 mcg/puff inhaler Inhale 2 puffs into the lungs every 6 hours as needed for Whe ezing. Historical Provider, fluticasone-salmeterol (ADVAIR) 100-50 mcg/puff diskus inhaler Inhale 1 puff into the lungs Twice Daily. Historical Provider, montelukast (SINGULAIR) 10 mg tablet Take 10 mg by mouth nightly. Historical Provider, Mal Horne The medication list in this chart was made based on data that was provided to ED nursing st aff by the patient as well as what was previously in the EPIC chart. This information was e ntered into the chart by the ED nursing staff or pharmacy coordinator. It has been verified to the best of my ability. ROS: Please see the history of present illness and nurse's notes for pertinent positives and neg atives. Physical Exam: Vital Sign Current: Last 24 Hours: Temperature Temp: 36.3 C (97.3 F) Temp Min: 36.3 C (97.3 F) Max: 36.3 C (97.3 F) Blood Pressure BP: 128/82 BP Min: 128/82 Max: 128/82 Pulse Pulse: 118 Pulse Min: 118 Max: 118 Respirations Resp: 18 Resp Min: 18 Max: 18 Pain Rating Rest No Data Recorded Pain Rating Activity No Data Recorded O2 Sat SpO2: 97 % on room air SpO2 Min: 97 % Max: 97 % Current Wt Current Wt: 74.8 kg (165 lb) Height: 157.5 cm (5' 2") Admit Wt Admit Wt: 74.8 kg (165 lb) Body mass index is 30.18 kg/m. GEN: This is An adult female in no distress. She is currently not coughing during my exam HEENT: Pupils are equal, round and reactive to light, extraocular muscles appear to be inta ct, there is no scleral icterus or injection. Mucus membranes are moist. CV: Heart rate is regular tachycardic RESP: Mild wheezing without increased work of breathing. Diffuse without rhonchi or crackl es NEURO: Alert and oriented. Moves all 4 extremities equally. Medical Decision Making: Differential Diagnosis: Differential diagnosis includes but is not limited to Asthma exacerbation, upper respirator y infection, bronchitis, bronchospasm ED Course: Results: Labs Reviewed - No data to display Imaging: No orders to display He was examined. Patient is slightly tachycardic and hypoxic. She is not tachypneic. She has mild diffuse expiratory wheezing. She does not have infectious symptoms. Her symptoms are most consistent with asthma exacerbation and bronchospasm. Bronchospasms appear to be somewhat improved. She is not having symptoms she reports prior to arrival. She does have wheezing. Is not consistent with pulmonary embolism pneumothorax or other more sinister con ditions. Patient received a DuoNeb with improvement. She was provided with a spacer and education f or her MDIs as she did not have one. She will use the nebulizer tubing from her visit this evening with her home nebulizer which is missing part of the delivery device. Her breathing improved significantly as well as with coughing. She received a dose of prednisone. I lucas l have her take a short course of steroids due to the increased need for her nebulizer/MDI. Impression: 1. Mild intermittent asthma without complication Disposition: Discharged home in good condition NOTE: This dictation was produced using voice recognition software. Although effort has been made to minimize mounting inspector errors, homonyms and other mounting inspector errors may be present an d may not truly reflect my intent. Naveed Corral MD 07/03/17 0211 Caitlin Crouch RN - 07/03/2017 1:09 AM PSTPt states increase in difficulty breathing for a couple of d ays but increasing tonight despite inhaler and nebulizer at home. h/o asthmaElectronically s igned by Caitlin Menjivar RN at 07/03/2017 1:10 AM PSTdocumented in this encounter Plan of Treatment + +------+--------+ + + | Name | Type | Priori | Associated Diagnoses | Date/Time | | | | ty | | | + +------+--------+ + + | ED INFORMATION | HERB | Routin | | 07/03/2017 1:04 AM | | EXCHANGE | | e | | PST | + +------+--------+ + + documented as of this encounter Procedures + +--------+ + + + | Procedure Name | Priori | Date/Time | Associated Diagnosis | Comments | | | ty | | | | + +--------+ + + + | ED INFORMATION | Routin | 07/03/2017 | | | | EXCHANGE | e | 1:04 AM | | | | | | PST | | | + +--------+ + + + +---+--------+ | | | | | Proced | | | ure | | | Note - | | | Devika, | | | Lab In | | | | | | Hlseve | | | n - | | | 07/03/ | | | 2017 | | | 1:05 | | | AM PST | | | | | | [...] | | | FICATI | | | ON?03/ | | | | | | 8 | | | 01:03? | | | CAIN, | | | | | | MELECIO? | | | MRN: | | | [id number] | | | [id number] | | | D Care | | [...] | | | int | | | Mar 8, | | | 2018 | | | [place] | | | [place] | | | [place] | | | [place] | | | [place] | | | Emerge | | | ncy | | | Emerge | | | ncy | | | Astma | | | Richard | | | 14, | | [...] | | Hospit | | | al 3 | | | [facility] [place] | | | y | | | Hospit | | | al 2 | | | Total | | | 7 | | | Note: | | | [...] | | | [place] | | | [facility], | | | [place] - | | | [email or web address] | | | ollect | | | ivemed | | | icalte | | | [email or web address] | | | | +---+--------+ documented in this encounter Visit Diagnoses + + | Diagnosis | + + | Mild intermittent asthma without complication - Primary Unspecified asthma | + + documented in this encounter Administered Medications + +--------+ +-------+------+------+ | Medication Order | MAR | Action | Dose | Rate | Site | | | Action | Date | | | | + +--------+ +-------+------+------+ | albuterol-ipratropium (DUONEB) | Given | 07/04/19 | 3 mLs | | | | 2.5-0.5 mg/3 mL nebulizer | | 18 1:25 | | | | | solution 3 mL 3 mL, | | AM PST | | | | | Nebulization, RT Once, Micaela 07/03/17 | | | | | | | at 0145, For 1 dose | | | | | | + +--------+ +-------+------+------+ +---+---+ | | | +---+---+ + +-------+ +-------+---+---+ | predniSONE (DELTASONE) tablet | Given | 07/04/19 | 40 mg | | | | 40 mg 40 mg, Oral, ONCE, Micaela | | 18 1:21 | | | | | 07/03/17 at 0145, For 1 dose | | AM PST | | | | + +-------+ +-------+---+---+ +---+---+ | | | +---+---+ documented in this encounter
--- OUTSIDE RECORDS SUMMARY | ~2020-01-02 | XMS | Encounter Summary ---
Demographics + + + | Address | [address] | | | [place] [address] | + + + | Home Phone | | + + + | Preferred Language | Unknown | + + + | Marital Status | | + + + | Islam Affiliation | 1013 | + + + | Race | White | + + + | Ethnic Group | Not or | + + + Author + + + | Author | [facility] | | | and [place] | + + + | Organization | [facility] | [...] [place] | | | | | [address] | | + + + + + Care Team Providers + +------+ + | Care Barkeep Name | Role | Phone | + +------+ + | No, Physician | PCP | Unavailable | + +------+ + Reason for Visit + + + | Reason | Comments | + + + | Toe Injury | | + + + Encounter Details +--------+ + + + + | Date | Type | Department | Care Team | Description | +--------+ + + + + | 05/11/ | Emergency | [facility] | Yani Gresham, | Pain of left great | | 2018 | | HOSPITAL EMER[facility]ENCY | PATTERN CLEANER [address] | toe (Primary Dx) | | | | CENTER [address] | [address] [place] | | | | | [place] | [phone] | | | | | [address] | | | | | | [phone] | | | +--------+ + + + [...] + + + | Blood Pressure | 122/68 | 05/11/2017 8:04 PM | | | | | PST | | + + + + + | Pulse | 99 | 05/11/2017 8:04 PM | | | | | PST | | + + + + + | Temperature | 36.4 C (97.5 F) | 05/11/2017 8:04 PM | | | | | PST | | + + + + + | Respiratory Rate | 18 | 05/11/2017 8:04 PM | | | | | PST | | + + + + + | Oxygen Saturation | 100% | 05/11/2017 8:04 PM | | | | | PST | | + + + + + | Inhaled Oxygen | - | - | | | Concentration | | | | + + + + + | Weight | 74.8 kg (165 lb) | 05/11/2017 8:04 PM | | | | | PST | | + + + + + | Height | 157.5 cm (5' 2") | 05/11/2017 8:04 PM | | | | | PST | | + + + + + | Body Mass Index | 30.18 | 05/11/2017 8:04 PM | | | | | PST | | + + + + + documented in this encounter Discharge Instructions Instructions Nas Greshamnils Resendez, NATHAN - 05/11/2017No fracture was seen on your X ray. Rest and ice tonight. Your toe will likely feel somewhat better tomorrow. Use ibuprofen for pain if n eeded. AttachmentsThe following attachments cannot be sent through Care Everywhere.Oumou (Vidhya )documented in this encounter Medications at Time of [...] documented as of this encounter ED Notes Yani Gresham FNP - 05/11/2017 8:23 PM PSTFormatting of this note might be different [facility] Note Name: Melecio Cain Date: 05/11/2017 : 1995 Room Number: ED01 PCP: No Physician on file Medical Decision Making This 21-year-old woman was walking on her stairs and accidentally kicked her left great toe against a toy. She states her toe is very painful and hurts when she walks. The left grea t toe was examined and there is no bruising and no swelling and no deformity. It is tender on the distal portion just proximal to the toenail. The toenail is intact with no bruising. An x-ray was done of the left great toe and no fracture was seen. She is advised she has a contusion from stubbing her toe and that she can use ibuprofen if needed for pain. Medical Decision Making Clinical Impression and Plan Final diagnoses: Pain of left great toe ED Prescriptions None Extended ED Note CC: Chief Complaint Patient presents with Toe Injury Method of Arrival: walk-in History obtained from:Patient HPI: Melecio Cain is a 21 y.o. female who presents with she stubbed her left great toe on a toy o n the stairs and says she feels like her toe was going to fall off. She has no other injury . Additional records obtained and reviewed by me: Reviewed old records, labs, imaging. Histo ry significant for patient's significant other states they recently moved here from [place]. Diagnostics and Procedures The following tests were ordered and independently interpreted by me: X-ray of left great t oe, no fracture was seen. Review of Systems Review of Systems Constitutional: Negative. HENT: Negative. Respiratory: Negative. Cardiovascular: Negative. Musculoskeletal: Left great toe injury is seen in HPI Skin: Negative. Physical Exam Pulse: 99- Resp: 18- BP: 122/68 - SpO2: 100 % - Temp: 36.4 C (97.5 F) Physical Exam Constitutional: She is oriented to person, place, and time. She appears well-developed and well-nourished. No distress. HENT: Head: Normocephalic. Eyes: Pupils are equal, round, and reactive to light. Neck: Normal range of motion. Cardiovascular: Normal rate and regular rhythm. Pulmonary/Chest: Effort normal. No respiratory distress. Musculoskeletal: She exhibits tenderness. She exhibits no edema or deformity. Tenderness of left great toe just proximal to toenail. There is no deformity. There is no swelling or bruising. Skin is intact. Neurological: She is alert and oriented to person, place, and time. Sensation is intact to left toe all the way to tip. Skin: Skin is warm and dry. No pallor. Psychiatric: She has a normal mood and affect. Past Medical, Surgical, Social, and Family History History reviewed. No pertinent past medical history. History reviewed. No pertinent surgical history. Social History Substance Use Topics Smoking status: Never Smoker Smokeless tobacco: Never Used Alcohol use No Previous Medications ALBUTEROL 90 MCG/PUFF INHALER Inhale 2 puffs into the lungs every 6 hours as needed for Wheezing. FLUTICASONE-SALMETEROL (ADVAIR) 100-50 MCG/PUFF DISKUS INHALER Inhale 1 puff into the l ungs Twice Daily. MONTELUKAST (SINGULAIR) 10 MG TABLET Take 10 mg by mouth nightly. Yani Gresham, PATTERN CLEANER 05/11/172039 Eric, Jocelyne Horne RN - 05/11/2017 8:04 PM EDSONPt states she kicked a toy and injured her lt great toeElectronical ly signed by Jocelyne Giles RN at 05/11/2017 8:11 PM PSTdocumented in this encounter Plan of Treatment + +------+--------+ + + | Name | Type | Priori | Associated Diagnoses | Date/Time | | | | ty | | | + +------+--------+ + + | ED INFORMATION | HERB | Routin | | 05/11/2017 7:57 PM | | EXCHANGE | | e | | PST | + +------+--------+ + + documented as of this encounter Procedures + +--------+ + + + | Procedure Name | Priori | Date/Time | Associated Diagnosis | Comments | | | ty | | | | + +--------+ + + + | XR TOE LEFT 2 + VW | STAT | 05/11/2017 | | Results for this | | | | 8:24 PM | | procedure are in the | | | | PST | | results section. | + +--------+ + + + | ED INFORMATION | Routin | 05/11/2017 | | | | EXCHANGE | e | 7:57 PM | | | | | | PST | | | + +--------+ + + + +---+--------+ | | | | | Proced | | | ure | | | Note - | | | Devika, | | | Lab In | | | | | | Hlseve | | | n - | | | | | | 2017 | | | 7:58 | | | PM PST | | [...] | | | FICATI | | | ON?01/ | | | 14/201 | | | 8 | | | 19:57? | | | CAIN, | | | | | | MELECIO? | | | MRN: | | | [id number] | | | [id number] | | | D Care | | | | | | Guidel | | | zhang | | | from | | | [facility] | | | [facility] | | | rd | | | Health | | | Care | | | System | | | Last | | | Update | | | d: | | | 6/23/1 | | | 7 | | | [...] | | | int | | | Richard | | | 14, | | | 2018 | | | [place] | | | [place] | | | [place] | | | [place] | | | [place] | | | Emerge | | | ncy | | | Emerge | | | ncy | | | Toe | | | Injury | | | Dec | | | [...] | | al 2 | | | [facility] | | | [facility] | | | al 2 | | | Total | | | 6 | | | Note: | | | [...] | +---+--------+ documented in this encounter Results XR Toe Left 2 + Vw (05/11/2017 8:24 PM PST) + + | Specimen | + + | | + + + + + | Impressions | Performed At | + + + | IMPRESSION: Query nondisplaced fracture of the dorsal base of the | [facility] | | 1st distal phalanx. Dictated by: Miguel Castro Electronically | | | Signed by: Miguel Castro on 05/12/2017 8:14 AM | | + + + + + + | Narrative | Performed At | + + + | EXAMINATION: XR TOE LEFT 2 + VW HISTORY: TOE INJURY great toe | [facility] | | COMPARISON STUDY: None FINDINGS: Films in multiple | | | projections show possible subtle fracture of the dorsal base of the | | | 1st distal phalanx, nondisplaced. No subluxation. No dislocation. | | | Age appropriate bone mineral density. | | + + + + + | Procedure Note | + + | Devika, Rad Results In - 05/12/2017 8:17 AM PST EXAMINATION:XR TOE LEFT 2 + | | VWHISTORY:TOE INJURY great toeCOMPARISON STUDY:NoneFINDINGS:Films in multiple | | projections show possible subtle fracture of the dorsal base of the 1st distal phalanx, | | nondisplaced. No subluxation. No dislocation. Age appropriate bone mineral | | density.IMPRESSION: IMPRESSION:Query nondisplaced fracture of the dorsal base of the 1st | | distal phalanx.Dictated by: Miguel Dickeyectronically Signed by: Miguel Castro on | | 05/12/2017 8:14 AM | |None | | | |FINDINGS: | |Films in multiple projections show possible subtle fracture of the dorsal base of the 1st d istal phalanx, nondisplaced. No subluxation. No dislocation. Age appropriate bone forest examiner al density. | | | |IMPRESSION: | |IMPRESSION: | |Query nondisplaced fracture of the dorsal base of the 1st distal phalanx. | | | |Dictated by: Miguel Castro | | | | | + + + +---------+ + + | Performing | Address | City/State/Zipcode | Phone Number | | Organization | | | | + +---------+ + + | [facility] | | | | + +---------+ + + documented in this encounter Visit Diagnoses + + | Diagnosis | + + | Pain of left great toe - Primary | + + documented in this encounter
--- OUTSIDE RECORDS SUMMARY | ~2020-01-02 | XMS | Clinical Summary ---
Demographics + + + | Address | [address] | | | [place] [address] | + + + | Home Phone | | + + + | Preferred Language | Unknown | + + + | Marital Status | | + + + | Restoration Affiliation | 1013 | + + + | Race | White | + + + | Ethnic Group | Not or | + + + Author + + + | Author | [facility] | | | and [place] | + + + | Organization | [facility] | | | and [place] [...] [place], [place] | | | | | [address] | | + + + + + Care Team Providers + +------+ + | Care Cvicu Nurse Name | Role | Phone | + +------+ + | No, Physician | PCP | Unavailable | + +------+ + Allergies No Known Allergies Medications + + + +---------+------+------+-------+ | Medication | Sig | Dispensed | Refills | Star | End | Statu | | | | | | t | Date | s | | | | | | Date | | | + + + +---------+------+------+-------+ | albuterol 90 | Inhale 2 puffs into | | 0 | | | Activ | | mcg/puff inhaler | the lungs every 6 | | | | | e | | | hours as needed for | | | | | | | | Wheezing. | | | | | | + + + +---------+------+------+-------+ | | Inhale 1 puff into | | 0 | | | Activ | | fluticasone-salmeter | the lungs Twice | | | | | e | | ol (ADVAIR) 100-50 | Daily. | | | | | | | mcg/puff diskus | | | | | | | | inhaler | | | | | | | + + + +---------+------+------+-------+ | montelukast | | | 0 | 02/0 | | Activ | | (SINGULAIR) 10 mg | | | | 3/20 | | e | | tablet | | | | 20 | | | + + + +---------+------+------+-------+ | hydrOXYzine | | | 0 | 02/0 | | Activ | | hydrochloride | | | | 3/20 | | e | | (ATARAX) 25 mg | | | | 20 | | | | tablet | | | | | | | + + + +---------+------+------+-------+ Active Problems No known active problems Immunizations + + + + | Name | Administration Dates | Next Due | + + + + | DTAP, 5 DOSE (PED) | 04/15/2000, 11/15/1998, 01/05/1998, | | | | 1997, 1997 | | + + + + | HEP A, 2 DOSE | 11/26/2007, 05/04/2007 | | | (PED/ADOL) | | | + + + + | HEP B, 3 DOSE | 1997 | | | (ADULT) | | | + + + + | HIB HBOC CONJUGATE, | 01/05/1998, 1997 | | | 4 DOSE (PED) | | | + + + + | HIB, UNSPECIFIED | 11/15/1998 | | | FORMULATION | | | + + + + | HPV, QUADRIVALENT, 3 | 10/04/2010, 04/10/2010, 11/13/2009 | | | DOSE (ADOL/ADULT) | | | + + + + | Hep B (PED/ADOL) 3 | 04/15/2000, 01/05/1998, 1997 | | | DOSE | | | + + + + | INFLUENZA PF 4Y OR | 12/25/2018 | | | >,QUAD DERIVED FROM | | | | TISS-CULT | | | + + + + | INFLUENZA QUADR | 02/26/2007, 02/04/2002 | | | W/PRES | | | | (PED/ADOL/ADULT) | | | | MULTIDOSE | | | + + + + | INFLUENZA TRIV | 04/10/2010 | | | W/PRES(PED/ADOL/ADUL | | | | T),MULTIDOSE | | | + + + + | INFLUENZA, | 05/24/2009 | | | UNSPECIFIED | | | | FORMULATION | | | + + + + | IPV, 4 DOSE | 06/19/2000, 04/15/2000, 01/05/1998, | | | (PED/ADULT) | 1997, 1997 | | + + + + | MENINGOCOCCAL | 11/13/2009 | | | CONJUGATE,MENACTRA | | | | (PED/ADOL/ADULT) | | | + + + + | MMR, 2 DOSE | 12/23/2016, 02/11/2003, 11/15/1998 | | | (PED/ADULT) | | | + + + + | PNEUMOCOCCAL PCV7 | 02/04/2002 | | | (PED) | | | + + + + | TDAP, (ADOL/ADULT) | 12/04/2007 | | + + + + | VARICELLA, 2 DOSE | 12/25/2018, 11/13/2009, 11/15/1998 | | | (VARIVAX) | | | + + + + Social History + [...] on file | | + + + Last Filed Vital Signs + + + [...] | | + + + + + Plan of Treatment + + + + + | Health Maintenance | Due Date | Last | Comments | | | | Done | | + + + + + | Hepatitis C | | | | | Screening | 8 | | | + + + + + | Vaccine: | | 12/04/19 | | | Dtap/Tdap/Td (6 - | 8 | 08, | | | Td) | | 04/15/20 | | | | | 00, | | | | | 11/15/18 | | | | | 99, | | | | | Addition | | | | | al | | | | | history | | | | | exists | | + + + + + | Cervical Cancer | | | | | Screening (Pap) | 9 | | | + + + + + | Vaccine: Influenza | | 12/26/19 | | | (#1) | 0 | 19, | | | | | 04/10/20 | | | | | 10, | | | | | 05/24/19 | | | | | 10, | | | | | Addition | | | | | al | | | | | history | | | | | exists | | + + + + + | Vaccine: HPV | Completed | 10/05/19 | | | | | 11, | | | | | 04/10/20 | | | | | 10, | | | | | 11/14/19 | | | | | 10 | | + + + + + Results Not on filefrom Last 3 Months Insurance + +--------+ +--------+ +---------+--------+ | Payer | Benefi | Subscriber | Effect | Phone | Address | Type | | | t Plan | ID | jonathon | | | | | | / | | Dates | | | | | | Group | | | | | | + +--------+ +--------+ +---------+--------+ | [employer] | [employer] | [id number] | 04/14/ | [phone] | | Medica | | MEDICAID HMO | HEALTH | | 2017-P | 1 | | id | | | MD[place] | | resent | | | | | [place] | | | | | | + +--------+ +--------+ +---------+--------+ + +--------+ +--------+ + + | Guarantor Name | Accoun | Relation to | Date | Phone | Billing Address | | | t Type | Patient | of | | | | | | | | | | + +--------+ +--------+ + + | Mitzy Cain | Person | Self [birth year] | [address] | | | al/Fam | | 1995 | [phone] | | | judy | | | [address] (Home) | [place], [place] | | | | | | | [address] | + +--------+ +--------+ + + | Mitzy Cain | Person | Self [birth year] | [address] | | | al/Fam | | 1995 | [phone] | | | judy | | | [address] (Home) | [place], [place] | | | | | | | [address] | + +--------+ +--------+ + + | Mitzy Cain | Specia | Self | [birth year] | | [address] | | | l | | 1995 | [phone] | | | Servic | | | 4 (Home) | [place], [place] | | | es | | | | [address] | + +--------+ +--------+ + + | Mitzy Cain | Person | Self | [birth year] | [address] | | | al/Fam | | 1996 | [phone] | | | judy | | | [address] (Home) | [place], [place] | | | | | | | [address] | + +--------+ +--------+ + + Advance Directives + + + + + | Type | Date Recorded | Patient | Explanation | | | | Residential Treatment Counselor | | + + + + + | Power of | | | | | Psychologist Developmental | | | | + + + + + | Advance | 08/17/2017 3:51 | | | | Directive | PM | | | + + + + +
--- OUTSIDE RECORDS SUMMARY | ~2020-01-02 | XMS | Encounter Summary ---
Demographics + + + | Address | [address] | | | [place] [address] | + + + | Home Phone | | + + + | Preferred Language | Unknown | + + + | Marital Status | | + + + | Sabianism Affiliation | 1013 | + + + | Race | White | + + + | Ethnic Group | Not or | + + + Author + + + | Author | [facility] | | | and [place] | + + + | Organization | [facility] | | | and [place] | [...] [place] | | | | | [address] | | + + + + + Care Team Providers + +------+ + | Care Trumpet Teacher Name | Role | Phone | + +------+ + | No, Physician | PCP | Unavailable | + +------+ + Reason for Visit +--------+ + | Reason | Comments | +--------+ + | Other | Suppression check U/S | +--------+ + Encounter Details +--------+---------+ + + + | Date | Type | Department | Care Team | Description | +--------+---------+ + + + | 06/04/ | Office | [facility] | Wm Meza, | Encounter for | | 2020 | Visit | F[facility]ILITY [facility]ENTER | [address] | fertility testing | | | | [address] | [address], | (Primary Dx) | | | | [address] [place], [place] | [place] [address] | | | | | [address] | [phone] | | | | | [phone] | | | +--------+---------+ + + + [...] + documented as of this encounter Progress Wm Benitez MD - 06/04/2019 11:00 AM PSTFormatting of this note might be different fr om the original. Subjective: Patient ID: Mitzy Cain is a 24 y.o. female. Patient's last menstrual period was 06/02/2019 (exact date). [id number] Mitzy is a female who presents to office for a cycle day 3 follicle count ultrasound. This is a repeat ultrasound from 06/01/2019. Recent ultrasound obtained, this was about 4 days or more after her last oral contraceptive pill, she still had not started bleeding. On that ultrasound intra-endometrial debris/poss ible clot was seen, no significant peristalsis. Follow-up ultrasound was recommended. She is here today for that follow-up ultrasound, having started her menses 1 day after our last ultrasound. Stimulation medications used this cycle: Patient completed a month of OCP, finishing Thursd ay 05/27/2019. As noted, she started her menses until 5 to 6 days after her last active pi ll. Patient denies questions or concerns today. No [...] on file. Follicle Count US performed? yes Anteverted uterus, endometrial thickness; measurin.70 mm at [...] cul-de-sac is free and contains no fluid. No past medical history on file. No past surgical history on file. Review of Systems Constitutional: Negative. Negative for activity change, appetite change, fever and unexpec halle weight change. HENT: Negative. Eyes: Negative. Respiratory: Negative. Cardiovascular: Negative. Negative for leg swelling. Gastrointestinal: Negative. Negative for abdominal distention, constipation [...] Wm Meza MD Indications: Follicle assessment Date: 06/04/19 at 1138 hours Procedure Details The entire study was done at a setting of 6.5 MHz. Transvaginal probe used. The cul-de-sac is free and contains no fluid. Uterus Size: Normal Anteverted uterus with a heterogenous endometrial thickness; [...] a polyp, but cannot absolutely rule out. Right ovary Size: appears small, multiple subcentimeter follicles identified in the periphery. Left ovary Size: appears small, multiple subcentimeter follicles identified in the periphery. Findings: Uterus Size: Normal Anteverted uterus with a heterogenous endometrial thickness; [...] cannot absolutely rule out. Ovaries appear quiescent. Assessment and Plan: Encounter for fertility testing: Follicle assessment completed. Findings noted above. PLAN: 1. Full report faxed to [facility], attention Sara Bradshaw RN at [phone] Note scribed by TOMI Lopez for Wm [...]
--- OUTSIDE RECORDS SUMMARY | ~2020-01-02 | XMS | Encounter Summary ---
Demographics + + + | Address | [address] | | | [place] [address] | + + + | Home Phone | | + + + | Preferred Language | Unknown | + + + | Marital Status | | + + + | Jew Affiliation | 1013 | + + + | Race | White | + + + | Ethnic Group | Not or | + + + Author + + + | Author | [facility] | | | and [place] | + + + | Organization | [facility] | | | and [place] [...] [place], [place] | | | | | [address] | | + + + + + Care Team Providers + +------+ + | Care Hospital Account Manager Name | Role | Phone | + +------+ + | No, Physician | PCP | Unavailable | + +------+ + Reason for Visit +---------+--------+ + | Reason | Onset | Comments | | | Date | | +---------+--------+ + | Results | 05/12/ | | | | 2017 | | +---------+--------+ + Encounter Details +--------+ + + + + | Date | Type | Department | Care Team | Description | +--------+ + + + + | 05/12/ | Telephone | [facility] | David Buckley, | Results | | 2018 | | HOSPITAL EM[facility]Y | [facility] [address] | | | | | CENTER [address] | [place] | | | | | [place] | [address] | | | | | [address] | | | | | | [phone] | | | +--------+ + + + [...] this encounter Miscellaneous Notes Telephone Encounter - David Buckley NP - 05/12/2017 10:38 AM PSTRedebbie For Call: RESULT S Contacted Elijah and home and let her know about the possible nondisplaced toe fracture seen by radiologist this morning. Recommend patient dana tape toe to adjacent toe and wear Freedom tsell shoe protect site from further injury. Recommend she follow primary care provider in about 2 weeks for follow-up. elephone Encounter - David Buckley NP - 05/12/2017 10:38 AM PST----- Message fro mariajose Varner RN sent at 05/12/2017 9:01 PST ----- Regarding: radiology review Yani, Radiology review shows fx. Please make recommended changes (if any) and the airborne sensor specialist tester semiconductor packages c an call the patient with any changes. , July ----- Message ----- From: Reji, Rad Results In Sent: 05/12/2017 8:17 To: Cc Wgr Ed Late Results F/U documented in this e ncounter Plan of Treatment Not on filedocumented as of this encounter Visit Diagnoses Not on filedocumented in this encounter"
--- OUTSIDE RECORDS SUMMARY | ~2020-01-02 | XMS | Encounter Summary ---
Demographics + + + | Address | [address] | | | [place] [address] | + + + | Home Phone | | + + + | Preferred Language | Unknown | + + + | Marital Status | | + + + | Scientology Affiliation | 1013 | + + + | Race | White | + + + | Ethnic Group | Not or | + + + Author + + + | Author | [facility] | | | and [place] | + + + | Organization | [facility] | | | and [place] [...] [place], [place] | | | | | [address] | | + + + + + Care Team Providers + +------+ + | Care Meat Cutting Teacher Name | Role | Phone | + +------+ + | No, Physician | PCP | Unavailable | + +------+ + Reason for Visit + +--------+ + | Reason | Onset | Comments | | | Date | | + +--------+ + | ER Follow-up | 05/13/ | | | | 2018 | | + +--------+ + Encounter Details +--------+ + + + + | Date | Type | Department | Care Team | Description | +--------+ + + + + | 05/13/ | Telephone | [facility] | No, Physician p | ER Follow-up | | 2017 | | HOSPITAL EMERGENCY | | | | | | CENTER [address] | | | | | | [place] | | | | | | [address] | | | | | | [phone] | | | +--------+ + + + [...] this encounter Miscellaneous Notes Telephone Encounter - Margot Varner RN - 05/19/2017 10:06 AM PSTReason For Call: no rejie r documented in this enc ounter Plan of Treatment Not on filedocumented as of this encounter Visit Diagnoses Not on filedocumented in this encounter"
--- OUTSIDE RECORDS SUMMARY | ~2020-01-02 | XMS | Encounter Summary ---
Demographics + + + | Address | [address] | | | [place] [address] | + + + | Home Phone | | + + + | Preferred Language | Unknown | + + + | Marital Status | | + + + | Alevism Affiliation | 1013 | + + + | Race | White | + + + | Ethnic Group | Not or | + + + Author + + + | Author | [facility] | | | and [place] | + + + | Organization | [facility] | | | and [place] | [...] [place], [place] | | | | | [address] | | + + + + + Care Team Providers + +------+ + | Care Operator Command Support Systems Name | Role | Phone | + +------+ + | No, Physician | PCP | Unavailable | + +------+ + Reason for Visit +--------+ + | Reason | Comments | +--------+ + | Other | outside monitoring | +--------+ + Encounter Details +--------+---------+ + + + | Date | Type | Department | Care Team | Description | +--------+---------+ + + + | 06/14/ | Office | [facility] | Susana Olustee, | Encounter for | | 2020 | Visit | FERTILITY CENTER | [address] | fertility testing | | | | [address] | [address], | (Primary Dx) | | | | [address] [place], [place] | [place] [address] | | | | | [address] | [phone] | | | | | [phone] | | | +--------+---------+ + + + [...] encounter Progress Notes Wm Meza MD - 06/14/2019 1:00 PM PSTFormatting of this note might be different fr om the original. Subjective: Patient ID: Mitzy Cain is a 24 y.o. female. Patient's last menstrual period was 06/02/2019 (exact date). [id number] Mitzy is a No obstetric history on file. female who presents to office for a cycle day 13 f ollicle count ultrasound. 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 Patient is currently using estrogen injections Patient denies questions or concerns today. . No results found for this or any [...] Follicle Count US performed? yes Cycle day #10 Date: 06/11/2019 Follicle measurement: Anteverted uterus with a heterogenous endometrial thickness; measurin.98 mm. Both ovaries seen, no cysts or masses appreciated. Appearance consistent with suppression. Cycle day #3 Date: 06/04/2019 Follicle measurement: Anteverteduterus with a heterogenousendometrial thickness;initiallymeasurin.51 mm at the fundus,and4.72 mm at mid-body.Peristalsis/movement consistent with menstr ual flow noted. Endometrium is thick and bulbous at the fundus.Peristalsisat fundusw ithin the bulbous area,most consistent withclot. During exam, apparent decrease of width in cavitynear the fundus,measured again at end of exam, the endometriumwasagainhe terogenous andmeasuring 6.59 mm.During the entire examination no stalkof vascular fl ow was noted entering the endometrium, no suggestion of a polyp, but [...] Wm Meza MD Indications: Follicle assessment Date: 06/14/19 at 1308 hours Procedure Details The entire study was done at a setting of 6.5 MHz. Transvaginal probe used. The cul-de-sac is free and contains no fluid. Uterus Size: Normal Anteverted uterus with a heterogenous endometrial thickness; measurin.13 - 10.79 mm. E ndometrial strip is indistinct. Some suggestion of peristalsis seen in the lower uterine seg ment/endocervical canal. Right ovary Size: normal, consistent with suppression. Left ovary Size: normal, consistent with suppression. Findings: Anteverted uterus with a heterogenous endometrial thickness; measurin.13 - 10.79 mm. E ndometrial strip is indistinct. Some suggestion of peristalsis seen in the lower uterine seg ment Ovaries are normal size and consistent with suppression. The cul-de-sac is free and contains no fluid. Assessment and Plan: Encounter for fertility testing: Follicle assessment completed. Findings noted above. PLAN: 1. Full report faxed to [facility], attention Sara Bradshaw RN at [phone] Note scribed by TOMI Lopez for Wm [...]
[2020-01-02] MEDS ORDERED: PREDNISONE20 MG PO (02:11)
[2020-01-02] MEDS ORDERED: IPRAT-ALBUT 0.5-3 ML INH (02:11)
== END 2020-01-02 02:48 | disposition home or self-care (01) ==
LOC: ED 01:48
DX: J45.901 Unspecified asthma with (acute) exacerbation (principal)
CPT/HCPCS: 94640; 99284; C9803; J7512